=== PATIENT | male | born 2000 | race Caucasian/White ===

== ENCOUNTER 2022-05-11 21:57 | Inpatient (IN) | payer OTHER ==
[~2022-05-11] VITALS: Ht 177.8 cm; Wt 96.5 kg
[2022-05-12] VITALS (8 sets, daily range): BP systolic 112–140; BP diastolic 48–74; PULSE 46–107; TEMP 97.9–98.3
[2022-05-12 07:16] LABS: BASO # 0.1 K/mm3 (0.0-0.2); EOS # 0.3 K/mm3 (0.0-0.7); EOS % 4.7 % (0.0-4.0); GRAN # 2.2 K/mm3 (1.4-6.5); HEMATOCRIT 41.6 % (42.0-52.0); HEMOGLOBIN 14.2 g/dl (13.5-18.0); LYMPH # 2.6 K/mm3 (1.2-3.4); LYMPH % 45.2 % (20.0-51.0); MEAN CELL VOLUME 85 fl (80.0-100.0); MEAN CORPUSCULAR HEMOGLOBIN 29 pg (27-31); MEAN CORPUSCULAR HGB CONC 34 g/dl (33.0-37.0); MEAN PLATELET VOLUME 10.8 fl (7.4-10.4); MONO # 0.6 K/mm3 (0.1-0.6); MONO % 9.8 % (1.7-9.3); PLATELET COUNT 262 K/mm3 (130-400); RED BLOOD COUNT 4.87 M/mm3 (4.20-5.60); REDCELL DISTRIBUTION WIDTH-CV 12.8 % (11.5-14.5)
[2022-05-12 07:37] LABS: ALBUMIN 3.8 gm/dL (3.5-5.0); BILIRUBIN,TOTAL 3.3 mg/dL (0.2-1.2); CALCIUM 9.7 mg/dL (8.4-10.2); POTASSIUM 3.7 mmol/L (3.5-4.5); TOTAL PROTEIN 6.4 gm/dL (6.2-8.1)
--- NOTE | 2022-05-12 10:52 | NUR ---
SHIFT ASSESSMENT COMPLETED AND MORNING MEDICATIONS ADMINISTERED PER ORDER. PATIENT IS ALERT AND ORIENTED X4. C/O PAIN 5/10 TO ABD, PRN DILAUDED GIVEN PER ORDER,WHICH WAS EFFECTIVE. LUNGS CTA. ON IV FLUIDS AND ZOSYN, TOLERATING WELL. SURGICAL AND GI CONSULTED THIS MORNING, AWAITING RECOMMENDATIONS. CALL LIGHT WITHIN REACH.
--- NOTE | 2022-05-12 10:53 | NUR ---
SW met with patient to complete intake and discuss discharge plan. 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 Patient is fully independent with ADL's and IADL's. He utilizes [facility] for PCP care along with prescriptions. He has no home oxygen needs. Patient denies having a DPOA-HC established but verbalizes that he and Franklyn are legally . Patient will return home once medically ready. [place] plan: Home
--- NOTE | 2022-05-12 11:14 | NUR ---
Initial visit: Group Home Counselor stopped by room on rounds. Pt was resting and content. 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 Pt has no needs right now. Group Home Counselor will follow up as needed.
--- NOTE | 2022-05-12 17:17 | NUR ---
PATIENT COMPLAINING OF SUDDEN INCREASE OF PAIN FROM 2 TO 8/10. HR NOTED TO BE 107, OTHER VS STABLE. PRN DILAUDED GIVEN PER ORDER AND DR. RM NOTIFIED. DR. BORREGO TO SEE PATIENT AFTER CURRENT SURGICAL CASE.
--- NOTE | 2022-05-12 17:41 | NUR ---
PATIENT STATES PAIN IS IMPROVING SINCE ADMINISTRATION OF DILAUDED, HR NOW IN THE 60S. DENIES NEEDS, CALL LIGHT WITHIN REACH.
--- NOTE | 2022-05-12 19:05 | NUR ---
RECEIVED CHANGE OF SHIFT REPORT FROM DAY SHIFT RN.
--- NOTE | 2022-05-12 23:32 | NUR ---
PATIENT STATED THE SURGEON HAD DISCUSSED WITH THEM ABOUT THE SURGERY. CONSENT FOR SURGERY SIGNED WITH NO FURTHER QUESTIONS REPORTED BY PATIENT
[2022-05-13] VITALS (8 sets, daily range): BP systolic 103–132; BP diastolic 39–77; PULSE 48–96; TEMP 97.5–98.2
[2022-05-13 07:01] LABS: ALBUMIN 3.5 gm/dL (3.5-5.0); CALCIUM 9.2 mg/dL (8.4-10.2); CREATININE, serum 1.03 mg/dL (0.72-1.25); POTASSIUM 3.8 mmol/L (3.5-4.5); TOTAL PROTEIN 5.9 gm/dL (6.2-8.1)
--- NOTE | 2022-05-13 07:26 | NUR ---
CHANGE OF SHIFT REPORT GIVEN TO DAY SHIFT RNJOSSY.
--- NOTE | 2022-05-13 08:40 | NUR ---
Patient is resting in bed, alert and oriented x 4, VSS. Denies any pain at this time. No guarding. Has been NPO from midnight. Receiving antibiotics and fluids per orders. No further needs at this time. Call light within reach.
--- NOTE | 2022-05-13 14:58 | NUR ---
Patient was taken for procedure.
--- NOTE | 2022-05-13 17:52 | NUR ---
Patient is back from surgery, alert and oriented x 4, denies pain at this time. 5 lap sites with glue, clean dry intact.
[2022-05-13] MEDS ORDERED: AMOXICILLIN 8751 TAB PO (20:05)
[2022-05-14 00:15] VITALS: BP 128/69; PULSE 81; TEMP 98.1
--- NOTE | 2022-05-14 02:43 | NUR ---
NURSING SHIFT ASSESSMENT COMPLETED. THE PATIENT IS ALERT AND ORIENTED. THE PATIENT DENIES DISCOMFORT/PAIN AT THIS TIME. LAP SITES ARE GLUED AND INTACT. NO DRAINAGE NOTED. THE PLAN OF CARE WAS TAUGHT EVENING MEDS DISCUSSED. THE PATIENT IS UP INDEPENDENTLY IN THE ROOM AND ABLE TO AMBULATE IN THE SAFELY. AMBULATION ENCOURAGED. CALL LIGHT WITHIN REACH. WILL MONITOR.
[2022-05-14 03:34] VITALS: BP 118/57; PULSE 60; TEMP 97.8
[2022-05-14 06:51] LABS: BASO % 0.3 % (0.0-2.0); EOS % 0.2 % (0.0-4.0); GRAN # 8.7 K/mm3 (1.4-6.5); GRAN % 77.1 % (42.2-75.2); HEMATOCRIT 42.7 % (42.0-52.0); HEMOGLOBIN 14.8 g/dl (13.5-18.0); LYMPH # 1.8 K/mm3 (1.2-3.4); LYMPH % 15.8 % (20.0-51.0); MEAN CELL VOLUME 84 fl (80.0-100.0); MEAN CORPUSCULAR HEMOGLOBIN 29 pg (27-31); MEAN CORPUSCULAR HGB CONC 35 g/dl (33.0-37.0); MEAN PLATELET VOLUME 10.1 fl (7.4-10.4); MONO # 0.7 K/mm3 (0.1-0.6); MONO % 6.3 % (1.7-9.3); PLATELET COUNT 274 K/mm3 (130-400); REDCELL DISTRIBUTION WIDTH-CV 12.3 % (11.5-14.5)
[2022-05-14 07:20] LABS: CALCIUM 10.2 mg/dL (8.4-10.2); CREATININE, serum 0.82 mg/dL (0.72-1.25); POTASSIUM 3.8 mmol/L (3.5-4.5)
[2022-05-14 07:35] VITALS: BP 118/51; PULSE 114; TEMP 98.1
--- NOTE | 2022-05-14 08:54 | NUR ---
Patient is resting in bed, with friend at the bedside. Alert and oriented x 4, VSS. Denies any pain at this time. Waiting for discharge. Assessment completed. No further needs, call light within reach.
--- NOTE | 2022-05-14 12:00 | NUR ---
Patient was provided with discharge information. All questions answered. IV access was discontinued. Pt taken to the ER entrance by AP.
== END 2022-05-14 12:01 | disposition home or self-care (01) | DRG 418 ==
LOC: MEDICAL 21:57
PROVIDERS: Nurse Practitioner Family; Physician Assistant; Surgery; ADMIT Internal Medicine
PROC: 0FT44ZZ Resection of Gallbladder, Percutaneous Endoscopic Approach (ICD-10-PCS; principal; 2022-05-12)
PROC: 8E0W4CZ Robotic Assisted Procedure of Trunk Region, Percutaneous Endoscopic Approach (ICD-10-PCS; 2022-05-12)
PROC: BF101ZZ Fluoroscopy of Bile Ducts using Low Osmolar Contrast (ICD-10-PCS; 2022-05-12)
DX: K85.10 Biliary acute pancreatitis without necrosis or infection (principal); K80.12 Calculus of gallbladder with acute and chronic cholecystitis without obstruction; R79.89 Other specified abnormal findings of blood chemistry; Z90.49 Acquired absence of other specified parts of digestive tract
CPT/HCPCS: C9113; J0690; J1100; J1170; J1885; J2405; J2543; J2704; J3010; J7030; J7120; Q9967